=== PATIENT | female | born 1950 | race Caucasian/White ===

== ENCOUNTER 2022-11-12 09:11 | Outpatient (CLI) | payer MEDICARE, OTHER ==
--- NOTE | 2022-11-12 09:41 | Sleep Patient Instructions ---
Sleep Center Visit Summary - Patient Visit Information Reason for Visit: Initial consult - Patient Instructions Instructions Attached: Sleep Study, Sleep Clinic Visit Additional Instructions: You will be completing a sleep study, either an in-lab polysomnography (PSG) or home sleep study (HST). You will follow-up in the sleep care office after the sleep study is completed to hear the results and talk about therapy, if needed. You will be called by our office staff to schedule this appointment, but you may contact us with any questions. - Clinic Information Contact: Located within [facility] [address] [place] [address] [email or web address] T: [phone]
[2022-11-12 09:45] VITALS: BP 128/78; O2SAT 98
--- NOTE | 2022-11-12 09:45 | SLEEP CARE CONSULTATION ---
Information from patient questionnaire entered by Jinny Chilel. I have reviewed and concur with the information entered by Jinny Chilel. This document represents the service I personally performed and the decisions made by me, Tea Yao ARNP. History of Present Illness Service Date and Time: 11/12/2022 0911 Reason for Visit: New patient, Previously diagnosed sleep apnea, Re-establish care Chief Complaint: reports: Snoring Date of Onset: 4+YRS Usual bedtime: 10PM Time it takes to fall asleep: LESS THAN A MIN Snores at night: Yes Observed to quit breathing while asleep: No Sleeps alone due to snoring: No Number of times waking at night: 2 Reasons for waking at night: reports: Snoring, Bathroom. denies: Choking, Gasping for air Toss, Turn, or Twitch while sleeping: Yes Recalls having dreams: Yes Usually gets out of bed at: 7AM Feels refreshed in the morning: Yes Morning headache: No Sleepy or fatigued during the day: Yes (sometimes) Ever fallen asleep while driving: No Takes day naps: Yes (2 times a week in the evening; 5-10 mins) Dreams during day naps: No Prior sleep studies: Yes Year and Where: [facility] 2013 Additional HPI information: KELLY MARTINEZ was previously diagnosed to have mild, AHI 8.1, obstructive sleep apnea-hypopnea syndrome in 2013 here at [facility] and comes in today with spouse to re-establish care. Her current complaint is snoring that is waking up . She has not been using the CPAP issued in 2013. She could not tolerate wearing and could not sleep so she stopped using the CPAP. She comes back now because her snoring is waking her up at night. She is also waking up to his snoring and they are both not sleeping well. She states they are renovating their home and this is put a lot of stress on them.She does take trazodone to help her to go to sleep at night and asleep pretty quickly. She only gets up 1 or 2 times a night as needed for the bathroom and occasionally because of her 's snoring. She will leave the room and sleeps elsewhere. - Parasomnia Symptoms Ever been unable to move upon waking from sleep: No Walks in sleep: No Talks in sleep: Yes Ever acted out dreams in sleep: No Ever felt weak in the knees when startled or emotional: No Bothered by creepy, crawly, restless sensations in legs: No Problems with memory or concentration: Yes (mostly concentration) Subjective Initial [place] Sleepiness Scale score: 2 (11/12/22) Past Medical History Past Medical History: reports: GERD, Other (surgery for Dupuytrens contractions; hysterectomy; torn meniscus in knee; cataracts) Social History The patient's occupation is a RE. Patient is and lives in [place]. Have you smoked in the past 12 months: No Alcohol use: Yes Alcohol amount and frequency: 1 BLOODY PATEL 2X WEEK Caffeine use: Yes Caffeine amount and frequency: 2 CUPS EVERY MORNING Family History Family history of sleep disordered breathing: No () Allergies and Home Medications Known drug allergies: Yes ( LISTED ) Drug allergies reviewed: Yes Home medication list reviewed: Yes (see updated list in EMR) Review of Systems Weight gain over past 5 years: 20 Cardiovascular: denies: high blood pressure Gastrointestinal: reports: heartburn, diarrhea Neurological: denies: headaches Psychiatric: denies: anxiety, depression Ear/Nose/Throat: reports: tonsillectomy, wisdom teeth removed Endocrine: reports: too hot or cold, increased urination. denies: thyroid d isease Immunologic: denies: allergies to food or environment Physical Exam Vital signs obtained and entered by: JINNY Mcneil MA Blood Pressure: 128/78 (LEFT ARM) Cuff size: regular Heart Rate: 71 O2 Saturation: 98 Height: 5 ft 3 in Weight: 196 lb 6.4 oz Body Mass Index: 34.7 BMI Classification: Obese Neck circumference: 15 Mouth and throat: narrow oropharynx Soft palate: long Hard palate: normal Uvula: normal Uvula visualization: 25% Mallampati Class III Tongue: enlarged in size with teeth santana on lateral edges Tonsils: absent bilaterally Neck: normal w/o lymphadenopathy or thyromegaly Heart: regular rate and rhythm Lungs: clear bilaterally Impression and Plan 1. Obstructive Sleep Apnea-Hypopnea Syndrome, mild as diagnosed in 2013. She continues to have loud and irregular snoring and cognitive impairment. I recommend proceeding to polysomnography to confirm the diagnosis and to assess severity. If the patient has significant sleep disordered breathing, a manual CPAP titration study will also be performed to find the optimal treatment pressure. I informed the patient of what the sleep studies involve and after some discussion, obtained agreement to proceed. The pathophysiology of obstructive sleep apnea-hypopnea syndrome was discussed with the patient and health risks of cardiovascular and cerebrovascular disease if not treated. Risks of drowsy driving discussed in detail and patient advised to avoid long distance driving and to pullman conductor at the first sign of drowsiness. Patient agreed to plan. I also reviewed the benefit of consistent device use of CPAP for gastric reflux. * Schedule polysomnography. * Avoid long distance driving or driving when feeling sleepy. * Avoid alcohol, sedative and muscle relaxant around bedtime. * Attempt to lose weight. * Review instructions provided by trained office staff on how to prepare for the sleep study. * Return for follow-up after sleep study completed. Counseling Topics: Weight loss health impact Visit Type: In Office Time Spent with Patient (minutes): 30 Provider Statement: I spent 100% of the Face to Face Visit with the patient with greater than 50% spent counseling the patient and coordination of care.
== END 2022-11-12 09:12 | disposition home or self-care (01) ==
LOC: SC 09:11
PROVIDERS: ATTEND Nurse Practitioner Family
DX: G47.33 Obstructive sleep apnea (adult) (pediatric) (principal); E66.9 Obesity, unspecified; Z68.34 Body mass index [BMI] 34.0-34.9, adult
CPT/HCPCS: 99203; G0463; 99212

== ENCOUNTER 2023-01-11 19:34 | Outpatient (CLI) | payer MEDICARE, OTHER | END 2023-01-11 19:35 | disposition home or self-care (01) | LOC: SC 19:34 | PROVIDERS: ATTEND Nurse Practitioner Family | DX: G47.33 Obstructive sleep apnea (adult) (pediatric) (principal); G47.61 Periodic limb movement disorder | CPT/HCPCS: 95810 ==

== ENCOUNTER 2023-02-04 09:24 | Outpatient (CLI) | payer MEDICARE, OTHER ==
--- NOTE | 2023-02-04 10:07 | Sleep Patient Instructions ---
Sleep Center Visit Summary - Patient Visit Information Reason for Visit: Sleep Study Followup - Patient Instructions Instructions Attached: Apnea Sleep Mouthpieces Additional Instructions: You have opted for an oral mandibular appliance with positional therapy to control your sleep apnea. A list of certified dentists in the area was provided for you to find a dentist to have your oral appliance made. Once you have the device, please call and make a follow up appointment. We need to see you after you have been using the appliance for a month. We will evaluate your response to therapy and order a follow up sleep study to check efficiency of treatment. Please call office to schedule a follow up appointment in the sleep care office one month after obtaining new device. - Clinic Information Contact: [facility] [address] [place] [email or web address] T: [phone]
--- NOTE | 2023-02-04 10:28 | SLEEP CARE CONSULTATION ---
Information from patient questionnaire entered by Jinny Chilel. I have reviewed and concur with the information entered by Jinny Chilel. This document represents the service I personally performed and the decisions made by , Tea Yao ARNP. History of Present Illness Service Date and Time: 02/04/2023923 Accompanied by: Spouse Initial [place] Sleepiness Scale score: 2 (11/12/22) Current [place] Sleepiness Scale score: 5 Additional HPI information: KELLY MARTINEZ returns with spouse for follow up and results of the recently performed polysomnography. The sleep study showed moderate obstructive sleep apnea with an average AHI of 15.3 and delmar oxygen saturation of 78%. She also had mild PLMs that did not contribute to sleep fragmentation. I explained the pathophysiology behind obstructive sleep apnea. We then spent quite a bit of time discussing different treatment options. For mild obstructive sleep apnea, surgery and oral appliance are alternatives to nasal CPAP therapy but in moderate or severe cases, nasal CPAP is the most effective and reliable treatment. I reviewed the impact of weight changes on sleep apnea and strongly recommended losing weight. Patient counseled not drink alcohol less than 4 hours before bedtime as it can increase snoring and apnea. Patient was cautioned about risks of drowsy driving until sleepiness symptoms resolve. Patient denies drowsy driving. Sleep Study - Results Type of Sleep Study: Polysomnography (COMPLETED 01/11/23) Prior sleep studies: Yes Year and Where: [facility] 2013 Polysomnography/Home Sleep Study results: IMPRESSION: The quality of the study is good. The patient had normal sleep efficiency. Except for mild sleep fragmentation, the sleep architecture was normal as well. Respiratory monitoring showed moderate obstructive sleep apnea-hypopnea (AHI = 15.3) associated with frequent arousals, oxyhemoglobin desaturation and moderate hypoxia (delmar oxygen saturation of 78%). The respiratory events occurred predominantly during REM sleep (supine AHI = 49.6; non-supine = 11.74). Snore was moderate to loud in intensity. There was mild periodic leg movement of sleep not contributing to the sleep fragmentation. Cardiac rhythm was normal sinus rhythm without significant arrhythmia. No abnormal behavior (parasomnia) observed during the night. Allergies and Home Medications Known drug allergies: Yes (as listed) Drug allergies reviewed: Yes Home medication list reviewed: Yes (no changes) Allergy and home medication list: Allergies Penicillins Allergy (Verified 02/03/23 11:14) Sulfa (Sulfonamide Antibiotics) Allergy (Verified 02/03/23 11:14) Review of Systems Review of systems same as previous: No (ED for chest pain, referred to Cardiology) Physical Exam Vital signs obtained and entered by: TEA WEEMS Blood Pressure: 130/79 Cuff size: wrist (left) Heart Rate: 57 O2 Saturation: 98 Height: 5 ft 3 in Weight: 194 lb Body Mass Index: 34.3 BMI Classification: Obese Impression and Plan 1. Obstructive Sleep Apnea-Hypopnea Syndrome, moderate, with lowest oxygen saturation of 78%. Her previous sleep study in 2013 showed mild DONNA with AHI of 8.1. Obviously this is the cause of the patients symptoms of unrefreshed sleep, and excessive daytime sleepiness. Positive pressure therapy could benefit gastric reflux. As mentioned above, the patient chose an oral appliance with positional therapy to treat their apnea. A month follow up after obtaining new device will be made to see if appliance has reduced symptoms. If so, another polysomnography will be ordered with use of the oral appliance to check efficacy in reducing apnea. 2. Hypoxemia, moderate, with a delmar oxygen saturation of 78% and 15 minutes spent under 90%. The baseline oxygen saturation was normal with an average oxygen saturation of 92%. 3. Periodic limb movement, mild, that did not fragment patients sleep. Periodic limb movement of sleep (PLMS) is characterized by episodes of repetitive limb movements that occur during sleep and usually involve the lower limbs. The etiology is unknown. Patient was advised that no treatment is needed at this time. If symptoms increase, then further evaluation is indicated. 4. Obesity, unspecified. Currently patients BMI is 34.3. Obesity increases the risk of apnea, CPAP pressure requirements and overall health risks especially cardiovascular and diabetes. Thus patient is advised to lose weight. * Oral appliance with positional therapy. * Attempt to lose weight. * Avoid alcohol consumption near bedtime. * Avoid supine sleep. * The patient is again cautioned about driving until sleepiness completely resolves. * Return one month after Oral appliance obtained. I will assess response to therapy at that time. Counseling Topics: Sleeping position, Weight loss health impact Prescriptions: Other (Oral appliance) Follow up with Sleep Care in: 3 months Visit Type: In Office Time Spent with Patient (minutes): 24 Provider Statement: I spent 100% of the Face to Face Visit with the patient with greater than 50% spent counseling the patient and coordination of care.
[2023-02-04 10:32] VITALS: BP 130/79; O2SAT 98
== END 2023-02-04 09:25 | disposition home or self-care (01) ==
LOC: SC 09:24
PROVIDERS: ATTEND Nurse Practitioner Family
DX: G47.33 Obstructive sleep apnea (adult) (pediatric) (principal); R09.02 Hypoxemia; G47.61 Periodic limb movement disorder; E66.9 Obesity, unspecified; Z68.34 Body mass index [BMI] 34.0-34.9, adult
CPT/HCPCS: 99213; G0463; 99212